=== PATIENT | female | born 1945 | race Caucasian/White ===

== ENCOUNTER 2023-02-16 15:10 | Outpatient (OUT) | payer MEDICARE, SELFPAY ==
[2023-02-16 15:38] LABS: Basophils Percent Auto 0.5 % (0.2-2.0); Eosinophils Absolute Auto 0.1 10^3/uL (0.0-0.7); Eosinophils Percent Auto 1.3 % (0.9-7.0); Hematocrit 38.1 % (36.0-48.0); Hemoglobin 12.4 g/dL (12.0-16.0); Immature Granulocytes Abs Auto 0.01 10^3/uL (0.00-0.03); Immature Granulocytes Pct Auto 0.2 % (0.0-0.5); Lymphocytes Absolute Auto 1.5 10^3/uL (1.2-3.8); Lymphocytes Percent Auto 26.3 % (20.5-60.0); Mean Corpuscular HGB Conc 32.5 g/dL (29.9-35.2); Mean Corpuscular Volume 101.3 fL (81.0-99.0); Monocytes Absolute Auto 0.5 10^3/uL (0.3-0.8); Monocytes Percent Auto 8.1 % (1.7-12.0); Neutrophils Absolute Auto 3.6 10^3/uL (1.4-6.5); Neutrophils Percent Auto 63.6 % (43.0-75.0); Platelet Count 182 10^3/uL (150-450); Red Blood Count 3.76 10^6/uL (4.20-5.40); Red Cell Distribution Width 14.1 % (11.0-15.0); White Blood Count 5.6 10^3/uL (4.0-11.0)
[2023-02-16 16:18] LABS: Creatinine Urine Random 41.12 mg/dL (20.00-300.00); Protein Creatinine Ratio Urine 0.16; Total Protein Urine Random 6.7 mg/dL (<=11.9)
[2023-02-16 16:20] LABS: Albumin Level 3.9 g/dL (3.4-5.0); Anion Gap 11.4; BUN Creatinine Ratio 18.6; Carbon Dioxide 27.3 mmol/L (21.0-32.0); Chloride 104 mmol/L (98-107); Estimated GFR (African America 32 (>=60); Estimated GFR (Non-African Ame 27 (>=60); Glucose 110 mg/dL (74-106); Phosphorus 2.7 mg/dL (2.6-4.7); Potassium 3.7 mmol/L (3.5-5.1); Sodium 139 mmol/L (136-145)
[2023-02-17 12:09] LABS: PTH, Intact 105 pg/mL (15-65)
== END 2023-02-16 15:11 | disposition home or self-care (01) ==
LOC: LAB 15:11
PROVIDERS: PCP Family Medicine; Visit Provider Internal Medicine Nephrology
DX: E11.22 Type 2 diabetes mellitus with diabetic chronic kidney disease (principal); N18.32 Chronic kidney disease, stage 3b; Q61.5 Medullary cystic kidney
CPT/HCPCS: 36415; 80048; 82042; 82306; 82570; 83970; 84100; 84156; 85025

== ENCOUNTER 2023-06-06 13:26 | Outpatient (OUT) | payer MEDICARE, SELFPAY ==
[2023-06-06 13:47] LABS: Basophils Percent Auto 0.6 % (0.2-2.0); Eosinophils Percent Auto 0.3 % (0.9-7.0); Hematocrit 38.5 % (36.0-48.0); Hemoglobin 11.8 g/dL (12.0-16.0); Immature Granulocytes Abs Auto 0.02 10^3/uL (0.00-0.03); Immature Granulocytes Pct Auto 0.3 % (0.0-0.5); Lymphocytes Absolute Auto 1.3 10^3/uL (1.2-3.8); Lymphocytes Percent Auto 21.1 % (20.5-60.0); Mean Corpuscular HGB Conc 30.6 g/dL (29.9-35.2); Mean Corpuscular Hemoglobin 31.1 pg (26.7-34.0); Mean Corpuscular Volume 101.3 fL (81.0-99.0); Mean Platelet Volume 10.5 fL (9.5-13.5); Monocytes Absolute Auto 0.5 10^3/uL (0.3-0.8); Monocytes Percent Auto 7.9 % (1.7-12.0); Neutrophils Absolute Auto 4.4 10^3/uL (1.4-6.5); Neutrophils Percent Auto 69.8 % (43.0-75.0); Platelet Count 196 10^3/uL (150-450); Red Cell Distribution Width 14.2 % (11.0-15.0); White Blood Count 6.4 10^3/uL (4.0-11.0)
[2023-06-06 13:47] LABS: Bilirubin Urine NEGATIVE (NEGATIVE); Blood Urine NEGATIVE (NEGATIVE); Clarity Urine CLEAR (CLEAR); Color Urine LT. YELLOW (YELLOW); Glucose Urine UA NEGATIVE (NEGATIVE); Ketones Urine NEGATIVE (NEGATIVE); Leukocyte Esterase Urine NEGATIVE (NEGATIVE); Nitrite Urine NEGATIVE (NEGATIVE); Protein Urine NEGATIVE (NEG/TRACE); Specific Gravity Urine 1.015 (1.005-1.025); Urobilinogen Urine 0.2 EU/dL (0.2-1.0)
[2023-06-06 14:22] LABS: Creatinine Urine Random 73.52 mg/dL (20.00-300.00); Microalbum Creatinine Ratio Ur 17.6 mg/g (0.0-29.9); Microalbumin Urine Random <1.3 mg/dL (<=30.0)
[2023-06-06 14:47] LABS: Albumin Level 3.6 g/dL (3.4-5.0); Anion Gap 11.8; BUN Creatinine Ratio 20.7; Calcium 8.9 mg/dL (8.5-10.1); Carbon Dioxide 29.4 mmol/L (21.0-32.0); Chloride 103 mmol/L (98-107); Estimated GFR (African America 36 (>=60); Estimated GFR (Non-African Ame 29 (>=60); Glucose 93 mg/dL (74-106); Phosphorus 2.7 mg/dL (2.6-4.7); Potassium 4.2 mmol/L (3.5-5.1); Sodium 140 mmol/L (136-145)
[2023-06-07 12:09] LABS: PTH, Intact 35 pg/mL (15-65)
== END 2023-06-06 13:27 | disposition home or self-care (01) ==
PROVIDERS: PCP Family Medicine; Visit Provider Internal Medicine Nephrology
DX: E11.22 Type 2 diabetes mellitus with diabetic chronic kidney disease (principal); N18.32 Chronic kidney disease, stage 3b; Q61.5 Medullary cystic kidney; G47.33 Obstructive sleep apnea (adult) (pediatric); D63.1 Anemia in chronic kidney disease; I12.9 Hypertensive chronic kidney disease with stage 1 through stage 4 chronic kidney disease, or unspecified chronic kidney disease
CPT/HCPCS: 36415; 80048; 81003; 82042; 82043; 82570; 83970; 84100; 85025

== ENCOUNTER 2023-11-18 13:29 | Outpatient (OUT) | payer MEDICARE, SELFPAY ==
[2023-11-18 14:23] LABS: Basophils Percent Auto 0.5 % (0.2-2.0); Eosinophils Percent Auto 0.2 % (0.9-7.0); Hematocrit 38.4 % (36.0-48.0); Hemoglobin 12.1 g/dL (12.0-16.0); Immature Granulocytes Abs Auto 0.01 10^3/uL (0.00-0.03); Immature Granulocytes Pct Auto 0.2 % (0.0-0.5); Lymphocytes Absolute Auto 1.7 10^3/uL (1.2-3.8); Lymphocytes Percent Auto 30.1 % (20.5-60.0); Mean Corpuscular HGB Conc 31.5 g/dL (29.9-35.2); Mean Corpuscular Hemoglobin 31.5 pg (26.7-34.0); Mean Platelet Volume 11.3 fL (9.5-13.5); Monocytes Absolute Auto 0.5 10^3/uL (0.3-0.8); Monocytes Percent Auto 8.7 % (1.7-12.0); Neutrophils Absolute Auto 3.5 10^3/uL (1.4-6.5); Neutrophils Percent Auto 60.3 % (43.0-75.0); Platelet Count 208 10^3/uL (150-450); Red Blood Count 3.84 10^6/uL (4.20-5.40); Red Cell Distribution Width 14.5 % (11.0-15.0); White Blood Count 5.7 10^3/uL (4.0-11.0)
[2023-11-18 14:31] LABS: Bilirubin Urine NEGATIVE (NEGATIVE); Blood Urine NEGATIVE (NEGATIVE); Clarity Urine CLEAR (CLEAR); Color Urine LT. YELLOW (YELLOW); Glucose Urine UA NEGATIVE (NEGATIVE); Ketones Urine NEGATIVE (NEGATIVE); Leukocyte Esterase Urine NEGATIVE (NEGATIVE); Nitrite Urine NEGATIVE (NEGATIVE); Protein Urine NEGATIVE (NEG/TRACE); Urobilinogen Urine 0.2 EU/dL (0.2-1.0)
[2023-11-18 14:31] LABS: Anion Gap 14.6; BUN Creatinine Ratio 17.4; Calcium 9.4 mg/dL (8.5-10.1); Carbon Dioxide 27.2 mmol/L (21.0-32.0); Chloride 102 mmol/L (98-107); Estimated GFR (African America 36 (>=60); Estimated GFR (Non-African Ame 30 (>=60); Glucose 126 mg/dL (74-106); Phosphorus 2.9 mg/dL (2.6-4.7); Potassium 4.8 mmol/L (3.5-5.1); Sodium 139 mmol/L (136-145)
[2023-11-19 15:08] LABS: PTH, Intact 100 pg/mL (15-65)
== END 2023-11-18 13:30 | disposition home or self-care (01) ==
LOC: LAB 13:30
PROVIDERS: PCP Family Medicine; Visit Provider Internal Medicine Nephrology
DX: E11.22 Type 2 diabetes mellitus with diabetic chronic kidney disease (principal); N18.32 Chronic kidney disease, stage 3b; G47.33 Obstructive sleep apnea (adult) (pediatric); Q61.5 Medullary cystic kidney; D63.1 Anemia in chronic kidney disease
CPT/HCPCS: 36415; 80048; 81003; 82042; 83970; 84100; 85025

== ENCOUNTER 2024-05-16 13:36 | Outpatient (OUT) | payer MEDICARE, SELFPAY ==
[2024-05-16 14:10] LABS: Basophils Percent Auto 0.6 % (0.2-2.0); Hematocrit 38.1 % (36.0-48.0); Hemoglobin 12.1 g/dL (12.0-16.0); Immature Granulocytes Abs Auto 0.02 10^3/uL (0.00-0.03); Immature Granulocytes Pct Auto 0.4 % (0.0-0.5); Lymphocytes Absolute Auto 1.5 10^3/uL (1.2-3.8); Lymphocytes Percent Auto 28.8 % (20.5-60.0); Mean Corpuscular HGB Conc 31.8 g/dL (29.9-35.2); Mean Corpuscular Hemoglobin 32.2 pg (26.7-34.0); Mean Corpuscular Volume 101.3 fL (81.0-99.0); Mean Platelet Volume 11.1 fL (9.5-13.5); Monocytes Absolute Auto 0.5 10^3/uL (0.3-0.8); Neutrophils Absolute Auto 3.1 10^3/uL (1.4-6.5); Neutrophils Percent Auto 61.2 % (43.0-75.0); Platelet Count 186 10^3/uL (150-450); Red Blood Count 3.76 10^6/uL (4.20-5.40); Red Cell Distribution Width 14.6 % (11.0-15.0); White Blood Count 5.1 10^3/uL (4.0-11.0)
[2024-05-16 14:15] LABS: Creatinine Urine Random 74.59 mg/dL (20.00-300.00); Protein Creatinine Ratio Urine 0.23; Total Protein Urine Random 17.2 mg/dL (<=11.9)
[2024-05-16 14:19] LABS: Albumin Level 3.8 g/dL (3.4-5.0); Anion Gap 13.6; BUN Creatinine Ratio 17.7; Calcium 9.7 mg/dL (8.5-10.1); Carbon Dioxide 27.4 mmol/L (21.0-32.0); Chloride 106 mmol/L (98-107); Estimated GFR (African America 31 (>=60 mL/min/1.73m^2); Estimated GFR (Non-African Ame 25 (>=60 mL/min/1.73m^2); Glucose 122 mg/dL (74-106); Phosphorus 3.3 mg/dL (2.6-4.7); Sodium 142 mmol/L (136-145)
== END 2024-05-16 13:37 | disposition home or self-care (01) ==
LOC: LAB 13:37
PROVIDERS: PCP Family Medicine; Visit Provider Internal Medicine Nephrology
DX: N20.0 Calculus of kidney (principal); N18.32 Chronic kidney disease, stage 3b; D63.1 Anemia in chronic kidney disease; E11.22 Type 2 diabetes mellitus with diabetic chronic kidney disease; Q61.5 Medullary cystic kidney; G47.33 Obstructive sleep apnea (adult) (pediatric); I12.9 Hypertensive chronic kidney disease with stage 1 through stage 4 chronic kidney disease, or unspecified chronic kidney disease
CPT/HCPCS: 36415; 80048; 82042; 82570; 84100; 84156; 85025

== ENCOUNTER 2024-11-14 14:42 | Outpatient (OUT) | payer MEDICARE, SELFPAY ==
[2024-11-14 14:58] LABS: Basophils Percent Auto 0.5 % (0.2-2.0); Eosinophils Percent Auto 0.2 % (0.9-7.0); Hematocrit 37.2 % (36.0-48.0); Hemoglobin 11.9 g/dL (12.0-16.0); Immature Granulocytes Abs Auto 0.01 10^3/uL (0.00-0.03); Immature Granulocytes Pct Auto 0.2 % (0.0-0.5); Lymphocytes Absolute Auto 1.6 10^3/uL (1.2-3.8); Lymphocytes Percent Auto 26.7 % (20.5-60.0); Mean Corpuscular Hemoglobin 32.4 pg (26.7-34.0); Mean Corpuscular Volume 101.4 fL (81.0-99.0); Mean Platelet Volume 11.2 fL (9.5-13.5); Monocytes Absolute Auto 0.5 10^3/uL (0.3-0.8); Monocytes Percent Auto 7.9 % (1.7-12.0); Neutrophils Absolute Auto 3.8 10^3/uL (1.4-6.5); Neutrophils Percent Auto 64.5 % (43.0-75.0); Platelet Count 197 10^3/uL (150-450); Red Blood Count 3.67 10^6/uL (4.20-5.40)
[2024-11-14 15:02] LABS: Creatinine Urine Random 52.75 mg/dL (20.00-300.00); Protein Creatinine Ratio Urine 0.61
[2024-11-14 15:30] LABS: Albumin Level 3.8 g/dL (3.4-5.0); BUN Creatinine Ratio 17.7; Calcium 9.2 mg/dL (8.5-10.1); Carbon Dioxide 30.4 mmol/L (21.0-32.0); Chloride 104 mmol/L (98-107); Estimated GFR (African America 31 (>=60 mL/min/1.73m^2); Estimated GFR (Non-African Ame 25 (>=60 mL/min/1.73m^2); Glucose 115 mg/dL (74-106); Phosphorus 2.5 mg/dL (2.6-4.7); Potassium 4.4 mmol/L (3.5-5.1); Sodium 137 mmol/L (136-145)
== END 2024-11-14 14:43 | disposition home or self-care (01) ==
LOC: LAB 14:43
PROVIDERS: PCP Family Medicine
DX: N20.0 Calculus of kidney (principal); N18.32 Chronic kidney disease, stage 3b; D63.1 Anemia in chronic kidney disease; E11.22 Type 2 diabetes mellitus with diabetic chronic kidney disease; Q61.5 Medullary cystic kidney; G47.33 Obstructive sleep apnea (adult) (pediatric); I12.9 Hypertensive chronic kidney disease with stage 1 through stage 4 chronic kidney disease, or unspecified chronic kidney disease
CPT/HCPCS: 36415; 80048; 82042; 82570; 84100; 84156